=== PATIENT | female | born 1960 | race Caucasian/White ===

== ENCOUNTER 2025-01-03 15:20 | Inpatient (IN) | payer OTHER ==
[~2025-01-03] VITALS: Ht 180.3 cm; Wt 74.0 kg
[2025-01-03] MEDS ORDERED: SPIR50TA27 PO (15:38)
[2025-01-03] MEDS ORDERED: TAMS0.4C94 PO (15:38)
[2025-01-03] MEDS ORDERED: LITHIUM PO (15:38)
[2025-01-03] MEDS ORDERED: QUET400T PO (15:38)
[2025-01-03] MEDS ORDERED: ASPI-1450 PO (15:38)
[2025-01-03] MEDS ORDERED: MIRT-89 PO (15:38)
[2025-01-03] MEDS ORDERED: ATOR10TA PO (15:38)
[2025-01-03] MEDS ORDERED: ESTRIDIOL IM (15:38)
[2025-01-03] MEDS ORDERED: LACT10SO85 PO (15:38)
[2025-01-03] MEDS ORDERED: CEFT1VIA65 IM (15:38)
[2025-01-03] MEDS ORDERED: FINA-27 PO (15:38)
[2025-01-03] MEDS ORDERED: HYDR-4808 PO (15:38)
[2025-01-03] MEDS ORDERED: LEVO-72 PO (15:38)
[2025-01-03 16:13] LABS: PLATELET COUNT (AUTO) 325 K/uL (150-450); RED BLOOD CELL COUNT(AUTO) 4.84 MIL/uL (4.00-5.20); RED CELL DISTRIBUTION WIDTH 14.1 % (11.5-14.5); WHITE BLOOD COUNT (AUTO) 9.1 K/uL (4.5-11.0)
[2025-01-03] MEDS: SODIUM CHLORIDE 0.9% 1,000 ML IV ONE ×3 (16:14→22:25)
[2025-01-03] MEDS: ACETAMINOPHEN 1000 MG/ISO-OSM 100 ML IV ONE (16:14)
[2025-01-03 16:22] LABS: CALCIUM, TOTAL 8.8 mg/dL (8.8-10.5); CREATININE 1.31 mg/dL (0.60-1.30); GLOMERULAR FILTR. RATE CALC 41.0 mL/min (>60); GLUCOSE,RANDOM 101.0 mg/dL (70-110); SODIUM SERUM 131.0 mmol/L (136-145); UREA NITROGEN, BLOOD 14.0 mg/dL (7-18)
[2025-01-03 16:26] LABS: ASPARTATE AMINOTRANSFERASE 31 U/L (15-37); TOTAL PROTEIN, SERUM 7.6 g/dL (6.4-8.2)
[2025-01-03] MEDS ORDERED: ZOLPIDEM TARTRATE 5 MG TABLET PO PRN (17:00)
[2025-01-03] MEDS ORDERED: ONDANSETRON HCL 4 MG/2 ML VIAL IVP PRN (17:00)
[2025-01-03] MEDS ORDERED: ACETAMINOPHEN 325 MG TABLET PO PRN (17:00)
[2025-01-03] MEDS ORDERED: IOHEXOL 350 MG/ML 100 ML VIAL ONE (17:40)
[2025-01-03] MEDS ORDERED: 0.9% SODIUM CHLORIDE 10 ML SYRINGE IVP ONE (17:40)
[2025-01-03] MEDS ORDERED: SODIUM CHLORIDE 0.9% 100 ML ONE (17:41)
[2025-01-03] MEDS: VANCOMYCIN 1.5 GM/WATER(PEG) 300 ML IV ONE (17:44)
[2025-01-03 18:17] LABS: APPEARANCE,URINE CLEAR (CLEAR); GLUCOSE, URINE (UA) NEGATIVE (NEGATIVE); LEUKOCYTE ESTERASE ,URINE MODERATE (NEGATIVE); NITRATE,URINE NEGATIVE (NEGATIVE); OCCULT BLOOD,URINE TRACE (NEGATIVE); SPECIFIC GRAVITIY, URINE 1.012 (1.003-1.030)
[2025-01-03 18:28] LABS: SQUAMOUS EPITHELIAL CELL,UR Rare /LPF (None Seen)
[2025-01-03] MEDS: DOCUSATE SODIUM 100 MG CAPSULE PO SCH (21:00)
[2025-01-03 21:40] VITALS: BP 123/59; PULSE 65; RESP 18; TEMP 98.1; O2SAT 100
[2025-01-03] MEDS: LITHIUM CARBONATE 300 MG CAPSULE PO SCH (22:00)
[2025-01-03] MEDS: MORPHINE SULFATE 2 MG/ML SYRINGE IVP PRN (22:34)
[2025-01-04] MEDS ORDERED: HEPARIN SODIUM,PORCINE 5,000 UNITS/ML VIAL SQ SCH
[2025-01-04 03:00] VITALS: BP 125/73; PULSE 68; RESP 18; TEMP 98.1; O2SAT 98
[2025-01-04] MEDS ORDERED: SODIUM CHLORIDE 0.9% 1,000 ML ONE (06:10)
[2025-01-04] MEDS ORDERED: NALOXONE HCL 0.4 MG/ML VIAL ONE (06:10)
[2025-01-04] MEDS ORDERED: FLUMAZENIL 0.1 MG/ML 5 ML VIAL IVP ONE (06:10)
[2025-01-04] MEDS ORDERED: SODIUM TETRADECYL SULFATE 3% 60 MG/2 ML VIAL IVP ONE (06:11)
[2025-01-04] MEDS ORDERED: ATROPINE SULFATE 0.1 MG/ML 10 ML SYRINGE IVP ONE (06:11)
[2025-01-04] MEDS ORDERED: EPINEPHrine 1:10,000 [1 MG/10 ML] SYRINGE ONE (06:11)
[2025-01-04] MEDS ORDERED: MIDAZOLAM HCL 2 MG/2 ML VIAL ONE (06:30)
[2025-01-04] MEDS ORDERED: FentaNYL CITRATE PF 100 MCG/2 ML VIAL ONE (06:31)
[2025-01-04 07:02] LABS: CALCIUM, TOTAL 8.4 mg/dL (8.8-10.5); CREATININE 0.94 mg/dL (0.60-1.30); GLOMERULAR FILTR. RATE CALC 60.0 mL/min (>60); GLUCOSE,RANDOM 88.0 mg/dL (70-110); SODIUM SERUM 134.0 mmol/L (136-145); UREA NITROGEN, BLOOD 7.0 mg/dL (7-18)
[2025-01-04] MEDS ORDERED: VANCOMYCIN 750 MG/WATER(PEG) 150 ML IV SCH (08:00)
[2025-01-04] MEDS ORDERED: VANCOMYCIN 1.25 GM/WATER(PEG) 250 ML IV SCH (08:00)
[2025-01-04] MEDS: TAMSULOSIN HCL 0.4 MG CAPSULE PO SCH (09:10)
[2025-01-04] MEDS: FAMOTIDINE 20 MG TABLET PO SCH (09:11)
[2025-01-04] MEDS: VANCOMYCIN 1GM/WATER(PEG/NADA) 200 ML IV SCH (09:11)
[2025-01-04] MEDS ORDERED: LIDOCAINE/PF 2% 5 ML VIAL ONE (09:24)
[2025-01-04] MEDS ORDERED: PROPOFOL 1% 20 ML VIAL IVP ONE (09:24)
[2025-01-04 09:26] VITALS: BP 111/57; PULSE 55; RESP 18; TEMP 97.3; O2SAT 100
[2025-01-04 13:20] VITALS: BP 112/70; RESP 18; O2SAT 100
[2025-01-04] MEDS: OxyCODONE HCL/ACETAMINOPHEN 5-325 MG TABLET PO PRN (13:26)
[2025-01-04 20:00] VITALS: BP 101/59; PULSE 78; RESP 18; TEMP 97.9; O2SAT 97
[2025-01-05 04:40] VITALS: BP 96/61; PULSE 56; RESP 18; TEMP 97.5; O2SAT 100
[2025-01-05 06:35] LABS: CALCIUM, TOTAL 8.1 mg/dL (8.8-10.5); CREATININE 0.74 mg/dL (0.60-1.30); GLOMERULAR FILTR. RATE CALC > 60 mL/min (>60); GLUCOSE,RANDOM 86 mg/dL (70-110); SODIUM SERUM 137 mmol/L (136-145); UREA NITROGEN, BLOOD 6 mg/dL (7-18)
[2025-01-05 07:07] LABS: HEPATITIS C AB (EIA) Non Reactive (Non Reactive)
[2025-01-05] MEDS ORDERED: RINGERS SOLUTION,LACTATED 0 ML IV ONE (07:23)
[2025-01-05 08:00] VITALS: BP 100/69; PULSE 66; RESP 19; TEMP 98; O2SAT 99
[2025-01-05] MEDS ORDERED: SODIUM CHLORIDE 0.9% 500 ML IV ONE (08:29)
[2025-01-05] MEDS ORDERED: ACET650S14 PR (11:18)
[2025-01-05] MEDS ORDERED: ASPI-1590 PO (11:39)
[2025-01-05] MEDS ORDERED: SULF-261 PO (12:36)
[2025-01-05] MEDS ORDERED: TRIA454O5 TP (12:36)
[2025-01-05] MEDS ORDERED: SALI10004 PO (12:36)
[2025-01-05] MEDS ORDERED: MINO60SO50 TP (12:36)
[2025-01-05] MEDS ORDERED: KETO15CR2 TP (12:36)
[2025-01-05] MEDS ORDERED: MUPI1OIN5 TP (12:36)
[2025-01-05] MEDS ORDERED: DICL100G60 TP (12:36)
[2025-01-05] MEDS: VANCOMYCIN 1GM/WATER(PEG/NADA) 200 ML IV SCH (17:30)
[2025-01-05 20:18] VITALS: BP 104/60; PULSE 72; RESP 18; TEMP 97.9; O2SAT 97
== END 2025-01-05 20:35 | DRG 345 ==
LOC: EMS 15:20 → EDH 16:57 → 6S 21:55
PROVIDERS: ADMIT Internal Medicine; ATTEND Internal Medicine
PROC: 0D9E8ZZ Drainage of Large Intestine, Via Natural or Artificial Opening Endoscopic (ICD-10-PCS; principal; 2025-01-04 07:45)
DX: K56.2 Volvulus (principal); L02.414 Cutaneous abscess of left upper limb; L03.114 Cellulitis of left upper limb; K62.89 Other specified diseases of anus and rectum; F41.9 Anxiety disorder, unspecified; E78.00 Pure hypercholesterolemia, unspecified; F32.A Depression, unspecified; F20.9 Schizophrenia, unspecified; F64.0 Transsexualism; I10 Essential (primary) hypertension; N30.90 Cystitis, unspecified without hematuria; Z79.899 Other long term (current) drug therapy
CPT/HCPCS: 74177; 80048; 80076; 80202; 81001; 83735; 84145; 85025; 86803; 87081; 87086; 87340; 96365; 99285; J0131; J0169; J0461; J1200; J2250; J2270; J2312; J2704; J3010; J3490; J7030; J7040; J7050; J7120

== ENCOUNTER 2025-01-10 12:42 | Inpatient (IN) | payer OTHER ==
[~2025-01-10] VITALS: Ht 180.3 cm; Wt 72.7 kg
[~2025-01-10 12:42] MED LIST: ACET650S14 PR; ASPI-1450 PO; ASPI-1590 PO; ATOR10TA PO; DICL100G60 TP; ESTRIDIOL IM; FINA-27 PO; HYDR-4808 PO; KETO15CR2 TP; LACT10SO85 PO; LITHIUM PO; MINO60SO50 TP; MIRT-89 PO; MUPI1OIN5 TP; QUET400T PO; SALI10004 PO; SPIR50TA27 PO; TAMS0.4C94 PO; TRIA454O5 TP
[2025-01-10 13:57] LABS: PLATELET COUNT (AUTO) 312 K/uL (150-450); RED BLOOD CELL COUNT(AUTO) 4.39 MIL/uL (4.00-5.20); RED CELL DISTRIBUTION WIDTH 13.8 % (11.5-14.5); WHITE BLOOD COUNT (AUTO) 8.9 K/uL (4.5-11.0)
[2025-01-10 14:04] LABS: APPEARANCE,URINE CLEAR (CLEAR); GLUCOSE, URINE (UA) NEGATIVE (NEGATIVE); LEUKOCYTE ESTERASE ,URINE SMALL (NEGATIVE); NITRATE,URINE NEGATIVE (NEGATIVE); OCCULT BLOOD,URINE NEGATIVE (NEGATIVE); SPECIFIC GRAVITIY, URINE 1.007 (1.003-1.030)
[2025-01-10 14:06] LABS: CALCIUM, TOTAL 8.5 mg/dL (8.8-10.5); CREATININE 0.94 mg/dL (0.60-1.30); GLOMERULAR FILTR. RATE CALC 60 mL/min (>60); GLUCOSE,RANDOM 92 mg/dL (70-110); SODIUM SERUM 135 mmol/L (136-145); UREA NITROGEN, BLOOD 10 mg/dL (7-18)
[2025-01-10 14:08] LABS: ASPARTATE AMINOTRANSFERASE 27.0 U/L (15-37); TOTAL PROTEIN, SERUM 6.9 g/dL (6.4-8.2)
[2025-01-10 14:15] LABS: TROPONIN I-HIGH SENSITIVITY 5 ng/L (<51)
[2025-01-10 14:22] LABS: SQUAMOUS EPITHELIAL CELL,UR Rare /LPF (None Seen)
[2025-01-10] MEDS ORDERED: SODIUM CHLORIDE 0.9% 100 ML ONE (15:20)
[2025-01-10] MEDS ORDERED: IOHEXOL 350 MG/ML 100 ML VIAL ONE (15:20)
[2025-01-10] MEDS ORDERED: 0.9% SODIUM CHLORIDE 10 ML SYRINGE IVP ONE (15:20)
[2025-01-10] MEDS: DICYCLOMINE HCL 10 MG CAPSULE PO ONE (17:28)
[2025-01-10] MEDS: PEG 3350/NA SULF,BICARB,CL/KCL 4000 ML SOLUTION PO ONE (17:29)
[2025-01-10] MEDS: ACETAMINOPHEN 500 MG TABLET PO ONE (17:29)
[2025-01-10 21:53] VITALS: BP 139/62; PULSE 75; RESP 19; TEMP 97.9; O2SAT 100
[2025-01-11] MEDS ORDERED: KETOROLAC TROMETHAMINE 10 MG TABLET PO ONE
[2025-01-11 00:26] VITALS: BP 133/72; PULSE 74; RESP 18; TEMP 97.9; O2SAT 99
[2025-01-11] MEDS: KETOROLAC TROMETHAMINE 15 MG/ML VIAL IVP PRN (00:26)
[2025-01-11] MEDS ORDERED: MIRTAZAPINE 15 MG TABLET PO PRN (00:45)
[2025-01-11] MEDS ORDERED: [UNRECOGNIZED DRUG - OTHER] PO PRN (00:45)
[2025-01-11] MEDS ORDERED: ASPIRIN/ACETAMINOPHEN/CAFFEINE 250-250-65 MG TABLET PO PRN (00:45)
[2025-01-11] MEDS ORDERED: DOXY50 PO (01:16)
[2025-01-11 03:39] VITALS: BP 106/72; PULSE 65; RESP 18; TEMP 98.2; O2SAT 98
[2025-01-11] MEDS: PEG 3350/NA SULF,BICARB,CL/KCL 4000 ML SOLUTION PO ONE (04:01)
[2025-01-11] MEDS: PANTOPRAZOLE SODIUM 40 MG/VIAL IVP SCH (08:53)
[2025-01-11] MEDS: SPIRONOLACTONE 50 MG TABLET PO SCH (08:54)
[2025-01-11] MEDS: ASPIRIN 81 MG CHEWABLE TABLET PO SCH (08:55)
[2025-01-11] MEDS: TAMSULOSIN HCL 0.4 MG CAPSULE PO SCH (08:55)
[2025-01-11] MEDS: FINASTERIDE 5 MG TABLET PO SCH (08:55)
[2025-01-11] MEDS: LACTULOSE 20 GM/30 ML SOLUTION UDCUP PO SCH (08:55)
[2025-01-11 08:56] VITALS: BP 111/70; PULSE 66; RESP 19; TEMP 98.1; O2SAT 99
[2025-01-11] MEDS: TRIAMCINOLONE 0.025% 15 GM OINTMENT TP SCH (08:56)
[2025-01-11] MEDS: KETOCONAZOLE 2% 15 GM CREAM TP SCH (08:56)
[2025-01-11] MEDS: DICLOFENAC SODIUM 1% 100 GM GEL [2GM] TP SCH (08:56)
[2025-01-11] MEDS ORDERED: [UNRECOGNIZED DRUG - OTHER] IM SCH (09:00)
[2025-01-11] MEDS: LITHIUM CARBONATE 300 MG CAPSULE PO SCH (09:37)
[2025-01-11] MEDS ORDERED: SODIUM CHLORIDE 0.9% 500 ML IV ONE (16:50)
[2025-01-11] MEDS: CefTRIAXone 1 GM/DEXTROSE 50 ML IV SCH (16:57)
[2025-01-11 20:57] VITALS: BP 119/61; PULSE 59; RESP 18; TEMP 97.7; O2SAT 99
[2025-01-11] MEDS: ATORVASTATIN CALCIUM 10 MG TABLET PO SCH (21:00)
[2025-01-11 21:41] VITALS: BP 140/72; PULSE 64; RESP 18; O2SAT 99
[2025-01-12 04:28] VITALS: BP 104/57; PULSE 58; RESP 18; TEMP 97.3; O2SAT 100
[2025-01-12 08:00] VITALS: BP 111/61; PULSE 59; RESP 20; TEMP 97.7; O2SAT 100
[2025-01-12] MEDS ORDERED: PHEN-846 PO (14:17)
[2025-01-12] MEDS: PHENAZOPYRIDINE HCL 100 MG TABLET PO ONE (14:28)
== END 2025-01-12 19:45 | DRG 392 ==
LOC: EMS 12:47 → EDH 17:28 → 6N 19:59 → 6S 01-12 15:09
PROVIDERS: ADMIT Hospitalist; ATTEND Hospitalist
DX: R10.84 Generalized abdominal pain (principal); R30.0 Dysuria; K43.9 Ventral hernia without obstruction or gangrene; K59.00 Constipation, unspecified; Z91.199 Patient's noncompliance with other medical treatment and regimen due to unspecified reason; I10 Essential (primary) hypertension; F41.9 Anxiety disorder, unspecified; F20.9 Schizophrenia, unspecified; E78.00 Pure hypercholesterolemia, unspecified; F64.0 Transsexualism; Z79.899 Other long term (current) drug therapy
CPT/HCPCS: 74177; 80048; 80076; 80178; 81001; 83690; 84484; 85025; 87086; 87177; 93005; 99285; J0696; J1885; J2470; J7040; J7050